=== PATIENT | male | born 1985 | race Caucasian/White ===

== ENCOUNTER → 2019-11-23 | Outpatient (CLI) | payer OTHER ==
--- NOTE | 2019-11-24 14:12 | RADIOLOGY REPORT (SQ) ---
EXAM DESCRIPTION: CT SINUSES FOR ENT COMPLETED DATE/TIME: 11/23/2019 9:07 am REASON FOR STUDY: NASAL POLYPS (J33.9) J33.9 NASAL POLYP, UNSPECIFIED COMPARISON: None. TECHNIQUE: Noncontrast scanning through the paranasal sinuses using bone algorithm. Reconstructed MPR images reviewed. All images stored on PACS. All CT scanners at this facility use dose modulation, iterative reconstruction, and/or weight based d osing when appropriate to reduce radiation dose to as low as reasonably achievable (ALARA). [facility]: Dose Right [facility]: CareDose [facility]: Dose Right [facility]: Teradose 4D [facility]: [place] RADIATION DOSE: 46mGy. LIMITATIONS: None. FINDINGS: Right sinuses and drainage pathways: Post-surgical changes: Surgical widening of the right maxillary outlet, resection of anterior ethmoid septa Frontal sinus: Mucous membrane thickening right frontal outlet Frontoethmoidal Recess: Opacified Anterior Ethmoid Sinuses: Opacified Posterior Ethmoid Sinuses: Opacified Sphenoid Sinus: Normal. Sphenoethmoidal Recess: Opacified Maxillary Sinus: Circumferential mucous membrane thickening Ostiomeatal Complex: Surgically widened Left Sinuses and Drainage Pathways: Post-Surgical Changes: None. Frontal Sinus: Mucous membrane thickening with air-fluid level Frontoethmoidal Recess: Completely opacified Anterior Ethmoid Sinuses: Opacified Posterior Ethmoid Sinuses: Mucous membrane thickening Sphenoid Sinus: Mucous membrane thickening move Sphenoethmoidal Recess: Opacified Maxillary Sinus: Circumferential mucous membrane thickening Ostiomeatal Complex: Soft tissue occludes the maxillary outlet on coronal images 98-108 Right Olfactory Fossa: No polyps. Left Olfactory Fossa: Possible polyp along the maxillary outlet Middle Turbinate Anna Marie Bullosa: No. Paradoxical Middle Turbinate: No. Atelectatic Uncinated Process: No. Frontal Sallie Cell Type I: No. Frontal Sallie Cell Type II: No. Interfrontal Sinus Septal Cell: None. Supra-Orbital Ethmoid: None. Frontal Bullar Cell: None. Suprabullar Bullar Cell: None. Sphenoethmoidal ([place]) Cell: None. Pneumatization of the Anterior Clinoid Processes: No Hypoplastic Maxillary Sinus: None. Osteoneogenesis: None. Bone Dehiscence:None. Nasal Cavity: Normal. Nasal Septum: Midline Anatomic Variants: Right Vidian Canal: Normal. Left Vidian Canal: Normal. IMPRESSION: Inflammatory changes with opacification of the left maxillary outlet and frontal sinus o utlet TECHNICAL DOCUMENTATION: JOB ID: [id number] Quality ID # [id number]: Final reports with documentation of one or more dose reduction techniques (e.g., Au tomated exposure control, adjustment of the mA and/or kV according to patient size, use of iterative reconstruction technique) 2010 [employer]- All Rights Reserved Reading location - IP/workstation name: [id number]
== END ==
LOC: RAD 08:40
PROVIDERS: ATTEND Otolaryngology
DX: J33.9 Nasal polyp, unspecified (principal); J32.0 Chronic maxillary sinusitis; J32.1 Chronic frontal sinusitis
CPT/HCPCS: 70486